=== PATIENT | male | born 1970 | race Caucasian/White ===

== ENCOUNTER 2021-01-15 06:21 | Emergency (ER) | payer MEDICAID ==
[~2021-01-15] VITALS: Ht 182.9 cm; Wt 90.0 kg
[2021-01-15] MEDS ORDERED: dexamethasone sod phosphate 10mg/ml inj IM STA (08:46)
[2021-01-15] MEDS ORDERED: CYCL-1 PO (08:49)
[2021-01-15] MEDS ORDERED: DEXA6TAB6 PO (08:49)
[2021-01-15] MEDS ORDERED: IBUP-1984 PO (08:49)
[2021-01-15] MEDS ORDERED: ketorolac tromethamine 15mg/ml inj. IM ONE (08:50)
[2021-01-15] MEDS ORDERED: cyclobenzaprine 10mg tablet PO ONE (08:50)
[2021-01-15 09:43] VITALS: BP 153/106
== END 2021-01-15 09:45 | disposition home or self-care (01) ==
LOC: ER 06:21
DX: M54.40 Lumbago with sciatica, unspecified side (principal); G89.29 Other chronic pain; Z79.899 Other long term (current) drug therapy
CPT/HCPCS: 96372; 99284; J1100; J1885

== ENCOUNTER 2021-05-03 14:50 | Emergency (ER) | payer MEDICAID ==
[~2021-05-03] VITALS: Ht 185.4 cm; Wt 90.0 kg
[~2021-05-03 14:50] MED LIST: CYCL-1 PO; DEXA6TAB6 PO
[2021-05-03 15:13] VITALS: BP 139/85
[2021-05-03] MEDS ORDERED: clindamycin 150mg capsule PO ONE (16:40)
[2021-05-03] MEDS ORDERED: bacitracin 15gm ointment TP ONE (17:18)
[2021-05-03] MEDS ORDERED: TETanus/Pertussis (Acell)/Diphther VAC/PF (Tdap-Adult) 0.5ml syringe IMVAC ONE (17:30)
[2021-05-03] MEDS ORDERED: CLIN-97 PO (18:31)
== END 2021-05-03 18:58 | disposition home or self-care (01) ==
LOC: ER 14:50
DX: S61.203A Unspecified open wound of left middle finger without damage to nail, initial encounter (principal); X58.XXXA Exposure to other specified factors, initial encounter; Y93.89 Activity, other specified; Y92.89 Other specified places as the place of occurrence of the external cause; Y99.8 Other external cause status
CPT/HCPCS: 73130; 90471; 90715; 99283